=== PATIENT | male | born 1960 | race Caucasian/White ===

== ENCOUNTER 2017-11-14 19:11 | Inpatient (IN) ==
[2017-11-14] MEDS ORDERED: ENOXAPARIN 100 MG/ML SYRINGE SUBCUT STA (19:45)
[2017-11-14] MEDS ORDERED: ASPIRIN 325 MG TABLET PO STA (19:45)
[2017-11-14] MEDS ORDERED: NITROGLYCERIN 2% OINT 1 INCH/GM PACK TOP STA (19:45)
[2017-11-14] MEDS ORDERED: ONDANSETRON 4 MG/2 ML VIAL IV STA (19:45)
[2017-11-14 19:55] LABS: Basophils # 0.1 10*3/uL (0.0-0.2); Basophils % 0.7 % (0.0-0.8); Eosinophils # 0.3 10*3/uL (0.0-0.87); Eosinophils % 3.2 % (0.00-10.9); Hemoglobin 15.5 GM/DL (14.0-18.0); Immature Granulocytes % 0.2 %; Immature Granulocytes Absolute 0.02 #; Lymphocytes # 2.4 10*3/uL (1.4-4.0); Mean Corpuscular HGB Conc 34.4 GM/DL (32-36); Mean Corpuscular Hemoglobin 30 PG (27-34); Mean Corpuscular Volume 87.7 FL (87-102); Mean Platelet Volume 9.8 FL (9.6-12.0); Monocytes # 0.7 10*3/uL (0.11-0.8); Monocytes % 7.8 % (1.7-12.7); Neutrophils # 5.7 10*3/uL (1.4-7.4); Neutrophils % 62.1 % (38.7-73.9); Platelet Count 199 T/CUMM (130-400); Red Blood Count 5.13 MC/CUMM (3.8-5.5); Red Cell Distribution Width 12.1 % (9.3-17.3); White Blood Count 9.1 T/CUMM (4-12)
[2017-11-14 20:03] LABS: Albumin 3.7 G/DL (3.4-5.0); Bilirubin,Total 0.4 MG/DL (0.2-1.0); Calcium 8.8 MG/DL (8.5-10.1); PT Patient Result 10.3 SECS; Potassium 4.2 MMOL/L (3.5-5.1)
[2017-11-14] MEDS ORDERED: ENOXAPARIN 30 MG/0.3 ML SYRINGE ONE (20:19)
[2017-11-14] MEDS ORDERED: DEXTROSE 50% 25 GM/50 ML VIAL IV PRN (22:44)
[2017-11-14] MEDS ORDERED: ACETAMINOPHEN 325 MG TABLET PO PRN (22:44)
[2017-11-14] MEDS ORDERED: GLUCAGON 1 MG VIAL IM PRN (22:44)
[2017-11-14] MEDS ORDERED: ONDANSETRON 4 MG/2 ML VIAL IV PRN (22:44)
[2017-11-14] MEDS ORDERED: ALBUTEROL/IPRATROPIUM 3 ML NEB RESP TX PRN (22:44)
[2017-11-14] MEDS ORDERED: MORPHINE 4 MG/1 ML VIAL IV PRN (22:44)
[2017-11-14] MEDS: DOCUSATE SODIUM 100 MG CAPSULE PO SCH (23:47)
[2017-11-14] MEDS: SODIUM CHLORIDE 0.9% 1,000 ML IV SCH (23:48)
[2017-11-14] MEDS: ENOXAPARIN 150 MG/ML SYRINGE SUBCUT SCH (23:48)
[2017-11-15] MEDS: NITROGLYCERIN 2% OINT 1 INCH/GM PACK TOP SCH ×5 (00:56→23:55)
[2017-11-15] MEDS: INSULIN REGULAR 100 UNIT/ML SUBCUT SCH ×5 (00:56→23:54)
[2017-11-15 03:55] LABS: Basophils # 0.1 10*3/uL (0.0-0.2); Basophils % 0.8 % (0.0-0.8); Eosinophils # 0.3 10*3/uL (0.0-0.87); Eosinophils % 3.7 % (0.00-10.9); Hematocrit 41.5 VOL% (42.0-52.0); Hemoglobin 14.3 GM/DL (14.0-18.0); Immature Granulocytes % 0.3 %; Immature Granulocytes Absolute 0.02 #; Lymphocytes # 2.6 10*3/uL (1.4-4.0); Lymphocytes % 34.5 % (21.2-54.2); Mean Corpuscular HGB Conc 34.5 GM/DL (32-36); Mean Corpuscular Hemoglobin 30 PG (27-34); Mean Corpuscular Volume 86.8 FL (87-102); Mean Platelet Volume 10.2 FL (9.6-12.0); Monocytes # 0.6 10*3/uL (0.11-0.8); Monocytes % 8.3 % (1.7-12.7); Neutrophils % 52.4 % (38.7-73.9); Platelet Count 182 T/CUMM (130-400); Red Blood Count 4.78 MC/CUMM (3.8-5.5); Red Cell Distribution Width 12.1 % (9.3-17.3); White Blood Count 7.6 T/CUMM (4-12)
[2017-11-15 04:24] LABS: Albumin 3.2 G/DL (3.4-5.0); Bilirubin,Total 0.6 MG/DL (0.2-1.0); Calcium 8.3 MG/DL (8.5-10.1); Osmolality,Calculated 283.3 MOS/KG (273-304); Potassium 3.9 MMOL/L (3.5-5.1); Risk Ratio 3.03; Total Protein 6.4 G/DL (6.4-8.3)
[2017-11-15] MEDS ORDERED: ATORVASTATIN 20 MG TABLET PO SCH ×2 (09:00→21:00)
[2017-11-15] MEDS: LISINOPRIL 5 MG TABLET PO SCH (09:55)
[2017-11-15] MEDS: DOCUSATE SODIUM 100 MG CAPSULE PO SCH ×2 (09:55→21:31)
[2017-11-15] MEDS: ASPIRIN EC 325 MG TABLET PO SCH (09:55)
[2017-11-15] MEDS: ENOXAPARIN 150 MG/ML SYRINGE SUBCUT SCH (09:55)
[2017-11-15] MEDS: PANTOPRAZOLE 40 MG VIAL IV SCH (09:57)
[2017-11-15] MEDS ORDERED: diphenhydrAMINE CAP 25 MG CAPSULE PO ONE (14:14)
[2017-11-15] MEDS ORDERED: DIAZEPAM 5 MG TABLET PO ONE (14:14)
[2017-11-15] MEDS ORDERED: MAGNESIUM SULF RIDER 2 GM in PREMIX 1 EACH IV PRN (14:14)
[2017-11-15] MEDS ORDERED: POTASSIUM CHLORIDE RIDER 10 MEQ in PREMIX 1 EACH IV PRN (14:14)
[2017-11-15] MEDS ORDERED: NITROGLYCERIN DRIP 50 MG/250 ML BOTTLE IV ONE (17:12)
[2017-11-15] MEDS ORDERED: LIDOCAINE 1% 20 ML VIAL ONE (17:13)
[2017-11-15] MEDS ORDERED: VERAPAMIL 5 MG/2 ML VIAL ONE (17:13)
[2017-11-15] MEDS ORDERED: HYDROmorphone 2 MG/1 ML VIAL ONE (17:13)
[2017-11-15] MEDS ORDERED: MIDAZOLAM 2 MG/2 ML VIAL ONE (17:13)
[2017-11-15] MEDS ORDERED: HYDROmorphone 2 MG/1 ML VIAL IV PRN (17:48)
[2017-11-15] MEDS ORDERED: NITROGLYCERIN SL 0.4 MG TABLET SL PRN (17:48)
[2017-11-15] MEDS: CARVEDILOL 3.125 MG TABLET PO SCH (21:31)
[2017-11-15] MEDS: ROSUVASTATIN 20 MG TABLET PO SCH (21:31)
[2017-11-16] MEDS: SODIUM CHLORIDE 0.9% 1,000 ML IV SCH (03:19)
[2017-11-16] MEDS: INSULIN REGULAR 100 UNIT/ML SUBCUT SCH ×3 (05:05→17:48)
[2017-11-16 05:18] LABS: Basophils % 0.6 % (0.0-0.8); Eosinophils # 0.2 10*3/uL (0.0-0.87); Eosinophils % 3.7 % (0.00-10.9); Hematocrit 42.8 VOL% (42.0-52.0); Hemoglobin 14.5 GM/DL (14.0-18.0); Immature Granulocytes % 0.3 %; Immature Granulocytes Absolute 0.02 #; Lymphocytes # 1.6 10*3/uL (1.4-4.0); Lymphocytes % 25.1 % (21.2-54.2); Mean Corpuscular HGB Conc 33.9 GM/DL (32-36); Mean Corpuscular Hemoglobin 30 PG (27-34); Monocytes # 0.6 10*3/uL (0.11-0.8); Monocytes % 9.3 % (1.7-12.7); Neutrophils # 3.8 10*3/uL (1.4-7.4); Platelet Count 174 T/CUMM (130-400); Red Blood Count 4.92 MC/CUMM (3.8-5.5); Red Cell Distribution Width 12.3 % (9.3-17.3); White Blood Count 6.3 T/CUMM (4-12)
[2017-11-16 05:56] LABS: Calcium 8.4 MG/DL (8.5-10.1); Osmolality,Calculated 276.5 MOS/KG (273-304)
[2017-11-16 06:15] LABS: Troponin I Only 0.053 NG/ML (0.00-0.045)
[2017-11-16] MEDS: NITROGLYCERIN 2% OINT 1 INCH/GM PACK TOP SCH (06:22)
[2017-11-16] MEDS: CARVEDILOL 3.125 MG TABLET PO SCH ×2 (09:48→16:55)
[2017-11-16] MEDS: ISOSORBIDE MONONITRATE 30 MG TABLET PO SCH (09:49)
[2017-11-16] MEDS: LISINOPRIL 5 MG TABLET PO SCH (09:49)
[2017-11-16] MEDS: DOCUSATE SODIUM 100 MG CAPSULE PO SCH ×2 (09:49→20:07)
[2017-11-16] MEDS: ASPIRIN EC 325 MG TABLET PO SCH (09:49)
[2017-11-16] MEDS: ENOXAPARIN 40 MG/0.4 ML SYRINGE SUBCUT SCH (09:53)
[2017-11-16] MEDS: PANTOPRAZOLE 40 MG VIAL IV SCH (09:53)
[2017-11-16] MEDS: ROSUVASTATIN 20 MG TABLET PO SCH (20:07)
[2017-11-17] MEDS: INSULIN REGULAR 100 UNIT/ML SUBCUT SCH ×4 (00:16→17:39)
[2017-11-17 05:44] LABS: Calcium 8.7 MG/DL (8.5-10.1); Osmolality,Calculated 279.4 MOS/KG (273-304); Potassium 4.1 MMOL/L (3.5-5.1)
[2017-11-17] MEDS: ISOSORBIDE MONONITRATE 30 MG TABLET PO SCH (08:57)
[2017-11-17] MEDS: LISINOPRIL 5 MG TABLET PO SCH (08:57)
[2017-11-17] MEDS: CARVEDILOL 3.125 MG TABLET PO SCH ×2 (08:57→17:02)
[2017-11-17] MEDS: ASPIRIN EC 325 MG TABLET PO SCH (08:57)
[2017-11-17] MEDS: DOCUSATE SODIUM 100 MG CAPSULE PO SCH (08:57)
[2017-11-17] MEDS: ENOXAPARIN 40 MG/0.4 ML SYRINGE SUBCUT SCH (08:57)
[2017-11-17] MEDS ORDERED: ISOSORBIDE MONONITRATE 30 MG TABLET PO ONE (10:44)
[2017-11-17] MEDS: PANTOPRAZOLE 40 MG VIAL IV SCH (11:02)
[2017-11-17] MEDS ORDERED: PAPAVERINE 60 MG/2 ML VIAL ONE ×2 (12:19→16:19)
[2017-11-17] MEDS ORDERED: VANCOMYCIN 1,000 MG VIAL ONE ×2 (12:20→14:15)
[2017-11-17] MEDS ORDERED: CEFUROXIME INJ 1,500 MG in SODIUM CHLORIDE 0.9% 100 ML IV ONE (12:20)
[2017-11-17] MEDS ORDERED: GLUCAGON 1 MG VIAL IM PRN (12:20)
[2017-11-17] MEDS ORDERED: DEXTROSE 50% 25 GM/50 ML VIAL IV PRN ×3 (12:20→18:27)
[2017-11-17] MEDS ORDERED: SODIUM CHLORIDE 0.9% 1,000 ML IV PRN (12:28)
[2017-11-17] MEDS ORDERED: SODIUM CHLORIDE 0.9% 1,000 ML IV SCH (12:30)
[2017-11-17] MEDS ORDERED: ETOMIDATE 40 MG/20 ML VIAL IV ONE (12:31)
[2017-11-17] MEDS ORDERED: MINERAL OIL/PETROLATUM OPH OINT 3.5 GM TUBE ONE ×2 (12:31→18:30)
[2017-11-17] MEDS ORDERED: VECURONIUM 10 MG VIAL IV ONE (12:31)
[2017-11-17] MEDS ORDERED: AMINOCAPROIC ACID 5,000 MG/20 ML VIAL IV ONE (12:32)
[2017-11-17] MEDS ORDERED: CEFUROXIME 1,500 MG VIAL ONE (13:03)
[2017-11-17 13:58] LABS: ABG HCO3 23.6 MMOL/L (20-26); ABG Oxygen Saturation 99.3 % (95-100); ABG PCO2 44.4 MM HG (35-48); ABG PH 7.355 (7.35-7.45); ABG TCO2 21.6 MMOL/L (23-27); Glucose Heart Surgery 102 MG/DL (74-106); Hematocrit Heart Surgery 41.7 PERCENT (42-52); Hemoglobin Heart Surgery 13.6 G/DL (14.0-18.0); PCO2 Patient Temp Arterial 44.4 MMHG; PH Patient Temp Arterial 7.355; Patient Temperature 37 CELCIUS; Potassium Heart/CVR 3.7 MMOL/L (3.5-5.1); Sodium Heart/CVR 140 MMOL/L (135-145)
[2017-11-17] MEDS ORDERED: NITROPRUSSIDE 50 MG/2 ML VIAL ONE (14:13)
[2017-11-17] MEDS ORDERED: PHENYLEPHRINE DRIP 40 MG/250 ML PREMIX IV ONE (14:13)
[2017-11-17] MEDS ORDERED: CALCIUM CHLORIDE 1,000 MG/10 ML SYRINGE IV ONE (14:13)
[2017-11-17] MEDS ORDERED: POTASSIUM CHLORIDE RIDER 100 ML IV ONE (14:13)
[2017-11-17] MEDS ORDERED: SODIUM BICARBONATE 50 MEQ/50 ML SYRINGE IV ONE ×2 (14:15→17:27)
[2017-11-17] MEDS ORDERED: ALBUMIN 5% 12.5 GM/250 ML VIAL IV ONE ×3 (14:15→18:29)
[2017-11-17] MEDS ORDERED: CHLORHEXIDINE 4% SOLN 118 ML BOTTLE TOP SCH (15:00)
[2017-11-17 16:03] LABS: Hematocrit Heart Surgery 30.4 PERCENT (42-52); Hemoglobin Heart Surgery 9.8 G/DL (14.0-18.0); PCO2 Patient Temp Venous 41.8 MM HG; PH Patient Temp Venous 7.403; PO2 Patient Temp Venous 47.6 MM HG; Potassium Heart/CVR 4.6 MMOL/L (3.5-5.1); VBG Base Excess 1.2 MEQ/L (0-4); VBG HCO3 25.2 MEQ/L (24-28); VBG Oxygen Saturation 83.3 %; VBG PCO2 41.8 MMHG (41-51); VBG PH 7.403; VBG PO2 47.6 MMHG (17-40)
[2017-11-17 16:34] LABS: Hemoglobin Heart Surgery 10.7 G/DL (14.0-18.0); PCO2 Patient Temp Venous 37.9 MM HG; PH Patient Temp Venous 7.433; PO2 Patient Temp Venous 41.5 MM HG; Potassium Heart/CVR 4.1 MMOL/L (3.5-5.1); VBG Base Excess 1.2 MEQ/L (0-4); VBG HCO3 25.1 MEQ/L (24-28); VBG Oxygen Saturation 78.3 %; VBG PCO2 37.9 MMHG (41-51); VBG PH 7.433; VBG PO2 41.5 MMHG (17-40)
[2017-11-17] MEDS ORDERED: FUROSEMIDE 20 MG/2 ML VIAL ONE (17:27)
[2017-11-17] MEDS ORDERED: PROTAMINE SULFATE 250 MG/25 ML VIAL IV ONE (17:27)
[2017-11-17] MEDS ORDERED: MAGNESIUM SULFATE 10 GM/20 ML VIAL IV ONE (17:27)
[2017-11-17] MEDS ORDERED: ALBUMIN 25% 25 GM/100 ML VIAL IV ONE (17:27)
[2017-11-17] MEDS ORDERED: HEPARIN 10,000 UNIT/10 ML VIAL ONE (17:27)
[2017-11-17] MEDS ORDERED: DEXTROSE 5% KCL 20 MEQ 20 MEQ/1,000 ML BAG IV ONE (17:27)
[2017-11-17] MEDS ORDERED: methylPREDNISolone SOD SUC 1,000 MG/8 ML VIAL ONE (17:27)
[2017-11-17] MEDS ORDERED: MANNITOL 12.5 GM/50 ML VIAL IV ONE (17:27)
[2017-11-17] MEDS ORDERED: PROTAMINE SULFATE 50 MG/5 ML VIAL IV ONE ×3 (17:28→18:32)
[2017-11-17 17:40] LABS: ABG Base Excess 0.4 MMOL/L (-2.5-2.5); ABG HCO3 24.8 MMOL/L (20-26); ABG Oxygen Saturation 99.7 % (95-100); ABG PH 7.436 (7.35-7.45); ABG TCO2 21.7 MMOL/L (23-27); Glucose Heart Surgery 161 MG/DL (74-106); Hematocrit Heart Surgery 33.9 PERCENT (42-52); Ionized Calcium Arterial 1.16 MMOL/L (1.21-1.46); PH Patient Temp Arterial 7.436; Patient Temperature 37 CELCIUS; Potassium Heart/CVR 3.6 MMOL/L (3.5-5.1); Sodium Heart/CVR 136 MMOL/L (135-145)
[2017-11-17] MEDS: LACTATED RINGERS 1,000 ML IV PRN ×3 (18:15→19:13)
[2017-11-17] MEDS: ALBUMIN 5% 12.5 GM in PREMIX 1 EACH IV PRN ×2 (18:20→20:35)
[2017-11-17] MEDS ORDERED: MIDAZOLAM 2 MG/2 ML VIAL IV PRN (18:27)
[2017-11-17] MEDS ORDERED: PHENYLEPHRINE DRIP 40 MG/250 ML PREMIX IV PRN (18:27)
[2017-11-17] MEDS ORDERED: INSULIN REGULAR 100 UNIT/ML IV ONE (18:27)
[2017-11-17] MEDS ORDERED: ONDANSETRON 4 MG/2 ML VIAL IV PRN (18:27)
[2017-11-17] MEDS ORDERED: MIDAZOLAM 10 MG/2 ML VIAL IV PRN (18:27)
[2017-11-17] MEDS ORDERED: MORPHINE 4 MG/1 ML VIAL IV PRN (18:27)
[2017-11-17] MEDS ORDERED: LACTATED RINGERS 250 ML IV PRN (18:27)
[2017-11-17] MEDS ORDERED: INSULIN REGULAR 100 UNIT/ML IV PRN (18:27)
[2017-11-17] MEDS ORDERED: MAGNESIUM SULF RIDER 2 GM in PREMIX 1 EACH IV PRN (18:27)
[2017-11-17] MEDS ORDERED: VECURONIUM 10 MG VIAL IV PRN ×2 (18:27)
[2017-11-17] MEDS ORDERED: ACETAMINOPHEN 650 MG SUPP RECTAL PRN (18:27)
[2017-11-17] MEDS ORDERED: MAGNESIUM SULF RIDER 4 GM in PREMIX 1 EACH IV PRN (18:27)
[2017-11-17] MEDS ORDERED: MORPHINE 10 MG/1 ML VIAL IV PRN (18:27)
[2017-11-17] MEDS ORDERED: NITROPRUSSIDE 100 MG in DEXTROSE 5% 250 ML IV PRN (18:27)
[2017-11-17] MEDS ORDERED: CALCIUM CHLORIDE 1,000 MG/10 ML SYRINGE IV PRN (18:27)
[2017-11-17] MEDS ORDERED: CALCIUM CHLORIDE 1,000 MG/10 ML VIAL IV ONE (18:29)
[2017-11-17] MEDS ORDERED: SEVOFLURANE 1 UNIT/15 MINUTE INH ONE (18:29)
[2017-11-17] MEDS ORDERED: INSULIN REGULAR DRIP 100 ML IV SCH (18:30)
[2017-11-17] MEDS ORDERED: SODIUM CHLORIDE 0.9% 2,000 ML IV ONE (18:30)
[2017-11-17] MEDS ORDERED: ePHEDrine 50 MG/ML AMP ONE (18:30)
[2017-11-17] MEDS ORDERED: SUFentanil 250 MCG/5 ML AMP ONE (18:30)
[2017-11-17] MEDS ORDERED: LACTATED RINGERS 1,000 ML IV ONE (18:30)
[2017-11-17] MEDS ORDERED: SODIUM CHLORIDE 0.9% 250 ML IV ONE (18:30)
[2017-11-17] MEDS ORDERED: SODIUM CHLORIDE 0.45% 1,000 ML IV SCH ×2 (18:30)
[2017-11-17] MEDS ORDERED: SUCCINYLCHOLINE 200 MG/10 ML VIAL ONE (18:30)
[2017-11-17 18:31] LABS: ABG Base Excess 0.3 MMOL/L (-2.5-2.5); ABG HCO3 24.7 MMOL/L (20-26); ABG PCO2 37.6 MM HG (35-48); ABG PH 7.422 (7.35-7.45); ABG TCO2 21.8 MMOL/L (23-27); Glucose Heart Surgery 158 MG/DL (74-106); Hematocrit Heart Surgery 35.4 PERCENT (42-52); Hemoglobin Heart Surgery 11.5 G/DL (14.0-18.0); Potassium Heart/CVR 3.8 MMOL/L (3.5-5.1)
[2017-11-17 18:44] LABS: Basophils % 0.4 % (0.0-0.8); Eosinophils # 0.1 10*3/uL (0.0-0.87); Eosinophils % 1.1 % (0.00-10.9); Hematocrit 32.4 VOL% (42.0-52.0); Hemoglobin 11.2 GM/DL (14.0-18.0); Immature Granulocytes % 0.5 %; Immature Granulocytes Absolute 0.05 #; Lymphocytes # 1.5 10*3/uL (1.4-4.0); Lymphocytes % 16.4 % (21.2-54.2); Mean Corpuscular HGB Conc 34.6 GM/DL (32-36); Mean Corpuscular Hemoglobin 31 PG (27-34); Mean Corpuscular Volume 88.8 FL (87-102); Mean Platelet Volume 9.8 FL (9.6-12.0); Monocytes # 0.6 10*3/uL (0.11-0.8); Monocytes % 6.1 % (1.7-12.7); Neutrophils # 6.9 10*3/uL (1.4-7.4); Neutrophils % 75.5 % (38.7-73.9); Platelet Count 151 T/CUMM (130-400); Red Blood Count 3.65 MC/CUMM (3.8-5.5); White Blood Count 9.2 T/CUMM (4-12)
[2017-11-17] MEDS: POTASSIUM CHLORIDE RIDER 20 MEQ in PREMIX 1 EACH IV PRN (18:45)
[2017-11-17 18:55] LABS: INR 1.2; PT Patient Result 12.1 SECS; Partial Thromboplastin Time 30.4 SECS (0-40)
[2017-11-17] MEDS: KETOROLAC 30 MG/1 ML VIAL IV SCH (18:55)
[2017-11-17 18:57] LABS: Albumin 2.9 G/DL (3.4-5.0); Bilirubin,Total 0.8 MG/DL (0.2-1.0); Calcium 8.4 MG/DL (8.5-10.1); Osmolality,Calculated 283.3 MOS/KG (273-304); Potassium 3.8 MMOL/L (3.5-5.1); Total Protein 5.2 G/DL (6.4-8.3)
[2017-11-17] MEDS: POTASSIUM CHLORIDE RIDER 10 MEQ in PREMIX 1 EACH IV PRN (19:15)
[2017-11-17 19:18] LABS: CKMB % 6.2 %
[2017-11-17 19:20] LABS: Troponin I Only 1.64 NG/ML (0.00-0.045)
[2017-11-17] MEDS ORDERED: CHLORHEXIDINE 0.12% ORAL RINSE 60 ML BOTTLE SWISH/SPIT SCH (21:00)
[2017-11-17] MEDS: CHLORHEXIDINE 0.12% ORAL RINSE 60 ML BOTTLE SWISH/SPIT SCH (21:31)
[2017-11-17 22:59] LABS: ABG Base Excess -0.8 MMOL/L (-2.5-2.5); ABG HCO3 23.7 MMOL/L (20-26); ABG Oxygen Saturation 98.3 % (95-100); ABG PCO2 42.7 MM HG (35-48); ABG PH 7.368 (7.35-7.45); Glucose Heart Surgery 141 MG/DL (74-106); Hematocrit Heart Surgery 35.2 PERCENT (42-52); Hemoglobin Heart Surgery 11.4 G/DL (14.0-18.0); Potassium Heart/CVR 3.5 MMOL/L (3.5-5.1)
[2017-11-17 23:49] LABS: ABG HCO3 22.7 MMOL/L (20-26); ABG Oxygen Saturation 96.4 % (95-100); ABG PCO2 45.8 MM HG (35-48); ABG PO2 90.1 MM HG (80-95); ABG TCO2 21.6 MMOL/L (23-27)
[2017-11-18] MEDS: POTASSIUM CHLORIDE RIDER 10 MEQ in PREMIX 1 EACH IV PRN (00:34)
[2017-11-18] MEDS: KETOROLAC 30 MG/1 ML VIAL IV SCH ×5 (01:10→18:44)
[2017-11-18 01:12] LABS: ABG Base Excess -2.9 MMOL/L (-2.5-2.5); ABG HCO3 21.9 MMOL/L (20-26); ABG Oxygen Saturation 95.3 % (95-100); ABG PCO2 42.1 MM HG (35-48); ABG PH 7.341 (7.35-7.45); ABG PO2 80.6 MM HG (80-95); ABG TCO2 20.4 MMOL/L (23-27); Glucose Heart Surgery 161 MG/DL (74-106); Hematocrit Heart Surgery 35.9 PERCENT (42-52); Hemoglobin Heart Surgery 11.7 G/DL (14.0-18.0); Potassium Heart/CVR 4.2 MMOL/L (3.5-5.1)
[2017-11-18] MEDS ORDERED: CEFUROXIME INJ 1,500 MG in SYRINGE 1 EACH IV SCH (02:00)
[2017-11-18] MEDS ORDERED: FUROSEMIDE 40 MG/4 ML VIAL IV ONE (02:30)
[2017-11-18 02:43] LABS: CKMB % 4.3 %
[2017-11-18 03:05] LABS: Troponin I Only 2.03 NG/ML (0.00-0.045)
[2017-11-18] MEDS: ALBUMIN 5% 12.5 GM in PREMIX 1 EACH IV PRN ×2 (03:46→04:20)
[2017-11-18 04:11] LABS: ABG Base Excess -0.9 MMOL/L (-2.5-2.5); ABG HCO3 24.2 MMOL/L (20-26); ABG Oxygen Saturation 94.5 % (95-100); ABG PCO2 41.8 MM HG (35-48); ABG PO2 80.2 MM HG (80-95); ABG TCO2 25.5 MMOL/L (23-27); Glucose Heart Surgery 123 MG/DL (74-106); Hemoglobin Heart Surgery 12.3 G/DL (14.0-18.0); Potassium Heart/CVR 4.1 MMOL/L (3.5-5.1)
[2017-11-18 04:17] LABS: Basophils % 0.1 % (0.0-0.8); Hematocrit 33.5 VOL% (42.0-52.0); Hemoglobin 11.4 GM/DL (14.0-18.0); Immature Granulocytes % 0.4 %; Immature Granulocytes Absolute 0.05 #; Lymphocytes # 0.6 10*3/uL (1.4-4.0); Mean Corpuscular Hemoglobin 30 PG (27-34); Mean Corpuscular Volume 88.6 FL (87-102); Mean Platelet Volume 9.8 FL (9.6-12.0); Monocytes # 0.5 10*3/uL (0.11-0.8); Monocytes % 3.4 % (1.7-12.7); Neutrophils # 13.2 10*3/uL (1.4-7.4); Neutrophils % 92.1 % (38.7-73.9); Platelet Count 194 T/CUMM (130-400); Red Blood Count 3.78 MC/CUMM (3.8-5.5); Red Cell Distribution Width 12.2 % (9.3-17.3); White Blood Count 14.3 T/CUMM (4-12)
[2017-11-18 04:34] LABS: Albumin 3.2 G/DL (3.4-5.0); Bilirubin,Direct 0.18 MG/DL (0.0-0.20); Bilirubin,Total 0.6 MG/DL (0.2-1.0); Calcium 8.5 MG/DL (8.5-10.1); Osmolality,Calculated 281.4 MOS/KG (273-304); Potassium 4.1 MMOL/L (3.5-5.1); Total Protein 6.1 G/DL (6.4-8.3)
[2017-11-18 04:40] LABS: Band Neutrophils 8 % (0-10); Lymphocytes 6 % (20-55); Segmented Neutrophils 83 % (50-85)
[2017-11-18 04:41] LABS: Platelet Estimate Normal; Total Cells Counted 100
[2017-11-18] MEDS: POTASSIUM CHLORIDE RIDER 20 MEQ in PREMIX 1 EACH IV PRN ×2 (04:51)
[2017-11-18] MEDS ORDERED: GLUCAGON 1 MG VIAL IM PRN ×3 (07:07→08:39)
[2017-11-18] MEDS: INSULIN REGULAR 100 UNIT/ML SUBCUT SCH ×4 (08:04→21:06)
[2017-11-18] MEDS: LISINOPRIL 5 MG TABLET PO SCH (08:08)
[2017-11-18] MEDS: CARVEDILOL 3.125 MG TABLET PO SCH ×2 (08:09→17:04)
[2017-11-18] MEDS: CHLORHEXIDINE 0.12% ORAL RINSE 60 ML BOTTLE SWISH/SPIT SCH ×3 (08:09→21:06)
[2017-11-18] MEDS ORDERED: oxyCODONE/ACETAMINOPHEN 5-325 MG TABLET PO PRN (08:39)
[2017-11-18] MEDS ORDERED: MAGNESIUM SULF RIDER 4 GM in PREMIX 1 EACH IV PRN (08:39)
[2017-11-18] MEDS ORDERED: SODIUM CHLOR 0.45% KCL 20 MEQ 20 MEQ/1,000 ML BAG IV SCH (08:39)
[2017-11-18] MEDS ORDERED: MORPHINE 4 MG/1 ML VIAL IV PRN (08:39)
[2017-11-18] MEDS ORDERED: ZALEPLON 5 MG CAPSULE PO PRN (08:39)
[2017-11-18] MEDS ORDERED: ONDANSETRON 4 MG/2 ML VIAL IV PRN (08:39)
[2017-11-18] MEDS ORDERED: MAGNESIUM HYDROXIDE SUSP 30 ML UDCUP PO PRN (08:39)
[2017-11-18] MEDS ORDERED: MAGNESIUM SULF RIDER 2 GM in PREMIX 1 EACH IV PRN (08:39)
[2017-11-18] MEDS ORDERED: DEXTROSE 50% 25 GM/50 ML VIAL IV PRN ×2 (08:39)
[2017-11-18] MEDS ORDERED: ALUMINUM/MAGNES/SIMETH MAX STR 30 ML UDCUP PO PRN (08:39)
[2017-11-18] MEDS ORDERED: POTASSIUM CHLORIDE 20 MEQ TABLET PO PRN (08:39)
[2017-11-18] MEDS ORDERED: ISOSORBIDE MONONITRATE 60 MG TABLET PO SCH (09:00)
[2017-11-18] MEDS: metFORMIN 500 MG TABLET PO SCH ×2 (09:28→21:06)
[2017-11-18] MEDS: ASPIRIN EC 81 MG TABLET PO SCH (09:28)
[2017-11-18] MEDS: PANTOPRAZOLE 40 MG TABLET PO SCH (09:28)
[2017-11-18] MEDS: FERROUS SULFATE 325 MG TABLET PO SCH (09:28)
[2017-11-18] MEDS: DOCUSATE SODIUM 100 MG CAPSULE PO SCH (09:29)
[2017-11-18] MEDS: ROSUVASTATIN 20 MG TABLET PO SCH (21:06)
[2017-11-18] MEDS: ENOXAPARIN 40 MG/0.4 ML SYRINGE SUBCUT SCH (22:55)
[2017-11-19] MEDS ORDERED: KETOROLAC 30 MG/1 ML VIAL IV SCH
[2017-11-19] MEDS: INSULIN REGULAR 100 UNIT/ML SUBCUT SCH ×7 (00:25→21:29)
[2017-11-19 04:47] LABS: Basophils % 0.1 % (0.0-0.8); Hematocrit 30.4 VOL% (42.0-52.0); Hemoglobin 10.2 GM/DL (14.0-18.0); Immature Granulocytes % 0.7 %; Immature Granulocytes Absolute 0.12 #; Lymphocytes # 1.5 10*3/uL (1.4-4.0); Lymphocytes % 8.9 % (21.2-54.2); Mean Corpuscular HGB Conc 33.6 GM/DL (32-36); Mean Corpuscular Hemoglobin 30 PG (27-34); Mean Corpuscular Volume 89.7 FL (87-102); Mean Platelet Volume 10.4 FL (9.6-12.0); Monocytes # 1.7 10*3/uL (0.11-0.8); Neutrophils # 13.4 10*3/uL (1.4-7.4); Neutrophils % 80.3 % (38.7-73.9); Platelet Count 170 T/CUMM (130-400); Red Blood Count 3.39 MC/CUMM (3.8-5.5); Red Cell Distribution Width 12.8 % (9.3-17.3); White Blood Count 16.7 T/CUMM (4-12)
[2017-11-19 05:19] LABS: Albumin 3.3 G/DL (3.4-5.0); Bilirubin,Direct 0.16 MG/DL (0.0-0.20); Bilirubin,Indirect 0.6 MG/DL (0.0-1.0); Bilirubin,Total 0.8 MG/DL (0.2-1.0); CKMB % 1.4 %; Calcium 8.5 MG/DL (8.5-10.1); Osmolality,Calculated 283.1 MOS/KG (273-304); Potassium 4.3 MMOL/L (3.5-5.1); Total Protein 6.3 G/DL (6.4-8.3)
[2017-11-19 05:21] LABS: Troponin I Only 3.31 NG/ML (0.00-0.045)
[2017-11-19] MEDS ORDERED: FUROSEMIDE 40 MG/4 ML VIAL IV ONE (06:00)
[2017-11-19] MEDS: ACETAMINOPHEN 325 MG TABLET PO PRN (06:05)
[2017-11-19] MEDS: LISINOPRIL 5 MG TABLET PO SCH (08:52)
[2017-11-19] MEDS: CARVEDILOL 3.125 MG TABLET PO SCH ×2 (08:53→16:16)
[2017-11-19] MEDS: DOCUSATE SODIUM 100 MG CAPSULE PO SCH (08:54)
[2017-11-19] MEDS: FERROUS SULFATE 325 MG TABLET PO SCH (08:54)
[2017-11-19] MEDS: ASPIRIN EC 81 MG TABLET PO SCH (08:54)
[2017-11-19] MEDS: metFORMIN 500 MG TABLET PO SCH ×2 (08:54→21:00)
[2017-11-19] MEDS: CHLORHEXIDINE 0.12% ORAL RINSE 60 ML BOTTLE SWISH/SPIT SCH ×2 (08:55→21:29)
[2017-11-19] MEDS: PANTOPRAZOLE 40 MG TABLET PO SCH (08:56)
[2017-11-19] MEDS: PHENAZOPYRIDINE 95 MG TABLET PO SCH ×2 (12:00→17:13)
[2017-11-19] MEDS: FUROSEMIDE 40 MG/4 ML VIAL IV SCH (17:12)
[2017-11-19] MEDS: NAPROXEN 250 MG TABLET PO SCH (17:13)
[2017-11-19] MEDS: ROSUVASTATIN 20 MG TABLET PO SCH (20:59)
[2017-11-19] MEDS: ENOXAPARIN 40 MG/0.4 ML SYRINGE SUBCUT SCH (20:59)
[2017-11-20] MEDS: INSULIN REGULAR 100 UNIT/ML SUBCUT SCH ×6 (01:21→21:23)
[2017-11-20] MEDS ORDERED: ENOXAPARIN 40 MG/0.4 ML SYRINGE SUBCUT ONE (01:30)
[2017-11-20] MEDS: NAPROXEN 250 MG TABLET PO SCH (01:38)
[2017-11-20 05:27] LABS: Basophils % 0.2 % (0.0-0.8); Eosinophils # 0.1 10*3/uL (0.0-0.87); Eosinophils % 0.4 % (0.00-10.9); Hematocrit 29.1 VOL% (42.0-52.0); Hemoglobin 9.9 GM/DL (14.0-18.0); Immature Granulocytes % 0.6 %; Immature Granulocytes Absolute 0.07 #; Lymphocytes # 1.8 10*3/uL (1.4-4.0); Lymphocytes % 14.4 % (21.2-54.2); Mean Corpuscular Hemoglobin 31 PG (27-34); Mean Corpuscular Volume 90.7 FL (87-102); Mean Platelet Volume 10.1 FL (9.6-12.0); Monocytes # 1.3 10*3/uL (0.11-0.8); Monocytes % 10.5 % (1.7-12.7); Neutrophils % 73.9 % (38.7-73.9); Platelet Count 150 T/CUMM (130-400); Red Blood Count 3.21 MC/CUMM (3.8-5.5); Red Cell Distribution Width 12.6 % (9.3-17.3); White Blood Count 12.2 T/CUMM (4-12)
[2017-11-20 05:55] LABS: Alanine Aminotransferase 36 U/L (16-61); Alkaline Phosphatase 55 U/L (45-117); Aspartate Amino Transferase 29 U/L (0-37); Bilirubin,Indirect 0.6 MG/DL (0.0-1.0); Bilirubin,Total 0.9 MG/DL (0.2-1.0); Calcium 8.6 MG/DL (8.5-10.1); Osmolality,Calculated 282.8 MOS/KG (273-304); Total Protein 6.3 G/DL (6.4-8.3)
[2017-11-20] MEDS: methylPREDNISolone SOD SUC 40 MG/1 ML VIAL IV SCH ×2 (09:00→17:09)
[2017-11-20] MEDS: FUROSEMIDE 40 MG/4 ML VIAL IV SCH ×2 (09:01→17:09)
[2017-11-20] MEDS: PHENAZOPYRIDINE 95 MG TABLET PO SCH ×3 (09:02→17:10)
[2017-11-20] MEDS: metFORMIN 500 MG TABLET PO SCH ×2 (09:02→21:23)
[2017-11-20] MEDS: CHLORHEXIDINE 0.12% ORAL RINSE 60 ML BOTTLE SWISH/SPIT SCH ×2 (09:02→21:26)
[2017-11-20] MEDS: DOCUSATE SODIUM 100 MG CAPSULE PO SCH (09:02)
[2017-11-20] MEDS: ASPIRIN EC 81 MG TABLET PO SCH (09:02)
[2017-11-20] MEDS: FERROUS SULFATE 325 MG TABLET PO SCH (09:02)
[2017-11-20] MEDS: PANTOPRAZOLE 40 MG TABLET PO SCH (09:02)
[2017-11-20] MEDS: ENOXAPARIN 80 MG/0.8 ML SYRINGE SUBCUT SCH (12:36)
[2017-11-20 13:30] LABS: Apearance,Urine CLEAR (Clear); Bacteria,Urine Occasional /HPF (Few); Bilirubin,Urine Negative (Negative); Blood, Urine Small mg/dL (Negative); Glucose,Urine (UA) 150 mg/dL (Negative); Ketones,Urine Negative (Negative); Mucus,Urine Occasional /LPF (Occasional); Nitrite,Urine Positive (Negative); Protein,Urine Negative; RBC,Urine 1 /HPF (0-4); Squamous Epithelial Cell,Urine Occasional /HPF (0-10); Urine Color Amber (Yellow); Urine Specific Gravity 1.009 (1.001-1.035); Urine Urobilinogen < 2.0 EU/DL (0.2-1.0); WBC,Urine <1 /HPF (0-6)
[2017-11-20] MEDS: ACETAMINOPHEN 325 MG TABLET PO PRN ×2 (15:17→22:12)
[2017-11-20] MEDS: ROSUVASTATIN 20 MG TABLET PO SCH (21:22)
[2017-11-21] MEDS: INSULIN REGULAR 100 UNIT/ML SUBCUT SCH ×6 (00:38→21:30)
[2017-11-21] MEDS: methylPREDNISolone SOD SUC 40 MG/1 ML VIAL IV SCH ×2 (00:38→09:25)
[2017-11-21] MEDS: ENOXAPARIN 80 MG/0.8 ML SYRINGE SUBCUT SCH ×2 (00:41→12:57)
[2017-11-21] MEDS ORDERED: MAGNESIUM HYDROXIDE SUSP 30 ML UDCUP PO ONE (09:01)
[2017-11-21] MEDS: PHENAZOPYRIDINE 95 MG TABLET PO SCH ×3 (09:07→17:33)
[2017-11-21] MEDS: FUROSEMIDE 40 MG/4 ML VIAL IV SCH (09:08)
[2017-11-21] MEDS: DOCUSATE SODIUM 100 MG CAPSULE PO SCH (09:08)
[2017-11-21] MEDS: FERROUS SULFATE 325 MG TABLET PO SCH (09:08)
[2017-11-21] MEDS: metFORMIN 500 MG TABLET PO SCH ×2 (09:08→21:30)
[2017-11-21] MEDS: ASPIRIN EC 81 MG TABLET PO SCH (09:08)
[2017-11-21] MEDS: CHLORHEXIDINE 0.12% ORAL RINSE 60 ML BOTTLE SWISH/SPIT SCH ×2 (09:14→21:35)
[2017-11-21] MEDS: PANTOPRAZOLE 40 MG TABLET PO SCH (09:14)
[2017-11-21] MEDS ORDERED: methylPREDNISolone SOD SUC 40 MG/1 ML VIAL IV SCH (09:30)
[2017-11-21] MEDS: ROSUVASTATIN 20 MG TABLET PO SCH (21:30)
[2017-11-22] MEDS: INSULIN REGULAR 100 UNIT/ML SUBCUT SCH ×5 (00:13→21:35)
[2017-11-22 04:59] LABS: Basophils % 0.2 % (0.0-0.8); Eosinophils # 0.1 10*3/uL (0.0-0.87); Eosinophils % 0.6 % (0.00-10.9); Hematocrit 29.5 VOL% (42.0-52.0); Hemoglobin 10.3 GM/DL (14.0-18.0); Immature Granulocytes % 0.5 %; Immature Granulocytes Absolute 0.06 #; Lymphocytes # 3.3 10*3/uL (1.4-4.0); Lymphocytes % 25.5 % (21.2-54.2); Mean Corpuscular HGB Conc 34.9 GM/DL (32-36); Mean Corpuscular Hemoglobin 31 PG (27-34); Mean Corpuscular Volume 88.1 FL (87-102); Mean Platelet Volume 9.9 FL (9.6-12.0); Monocytes # 1.2 10*3/uL (0.11-0.8); Monocytes % 9.1 % (1.7-12.7); Neutrophils # 8.4 10*3/uL (1.4-7.4); Neutrophils % 64.1 % (38.7-73.9); Platelet Count 258 T/CUMM (130-400); Red Blood Count 3.35 MC/CUMM (3.8-5.5); Red Cell Distribution Width 12.3 % (9.3-17.3); White Blood Count 13.1 T/CUMM (4-12)
[2017-11-22 05:36] LABS: Alanine Aminotransferase 37 U/L (16-61); Albumin 2.9 G/DL (3.4-5.0); Alkaline Phosphatase 69 U/L (45-117); Aspartate Amino Transferase 18 U/L (0-37); Bilirubin,Indirect 0.6 MG/DL (0.0-1.0); Blood Urea Nitrogen 27 MG/DL (7-18); Calcium 9.1 MG/DL (8.5-10.1); Glucose 158 MG/DL (74-106); Osmolality,Calculated 282.7 MOS/KG (273-304); Potassium 3.5 MMOL/L (3.5-5.1); Sodium 138 MMOL/L (136-145); Total Protein 6.6 G/DL (6.4-8.3)
[2017-11-22] MEDS: ACETAMINOPHEN 325 MG TABLET PO PRN (06:21)
[2017-11-22] MEDS: ENOXAPARIN 40 MG/0.4 ML SYRINGE SUBCUT SCH (08:40)
[2017-11-22] MEDS: PANTOPRAZOLE 40 MG TABLET PO SCH (08:41)
[2017-11-22] MEDS: FERROUS SULFATE 325 MG TABLET PO SCH (08:41)
[2017-11-22] MEDS: DOCUSATE SODIUM 100 MG CAPSULE PO SCH (08:41)
[2017-11-22] MEDS: PHENAZOPYRIDINE 95 MG TABLET PO SCH ×3 (08:41→16:38)
[2017-11-22] MEDS: metFORMIN 500 MG TABLET PO SCH ×2 (08:41→21:32)
[2017-11-22] MEDS: ASPIRIN EC 81 MG TABLET PO SCH (08:41)
[2017-11-22] MEDS: FUROSEMIDE 40 MG TABLET PO SCH (08:41)
[2017-11-22] MEDS: CHLORHEXIDINE 0.12% ORAL RINSE 60 ML BOTTLE SWISH/SPIT SCH ×2 (08:41→21:33)
[2017-11-22] MEDS: LISINOPRIL 10 MG TABLET PO SCH (12:32)
[2017-11-22] MEDS: ROSUVASTATIN 20 MG TABLET PO SCH (21:32)
[2017-11-23 04:53] LABS: Basophils % 0.4 % (0.0-0.8); Eosinophils # 0.2 10*3/uL (0.0-0.87); Eosinophils % 1.9 % (0.00-10.9); Hematocrit 29.3 VOL% (42.0-52.0); Hemoglobin 9.7 GM/DL (14.0-18.0); Immature Granulocytes % 0.6 %; Immature Granulocytes Absolute 0.06 #; Lymphocytes # 2.9 10*3/uL (1.4-4.0); Lymphocytes % 26.9 % (21.2-54.2); Mean Corpuscular HGB Conc 33.1 GM/DL (32-36); Mean Corpuscular Hemoglobin 30 PG (27-34); Mean Corpuscular Volume 89.1 FL (87-102); Mean Platelet Volume 9.7 FL (9.6-12.0); Monocytes % 9.4 % (1.7-12.7); Neutrophils # 6.6 10*3/uL (1.4-7.4); Neutrophils % 60.8 % (38.7-73.9); Platelet Count 253 T/CUMM (130-400); Red Blood Count 3.29 MC/CUMM (3.8-5.5); Red Cell Distribution Width 12.2 % (9.3-17.3); White Blood Count 10.8 T/CUMM (4-12)
[2017-11-23 05:04] LABS: Calcium 8.4 MG/DL (8.5-10.1); Osmolality,Calculated 283.5 MOS/KG (273-304); Potassium 3.8 MMOL/L (3.5-5.1)
[2017-11-23 05:10] LABS: Alanine Aminotransferase 30 U/L (16-61); Albumin 2.6 G/DL (3.4-5.0); Alkaline Phosphatase 59 U/L (45-117); Aspartate Amino Transferase 14 U/L (0-37); Bilirubin,Indirect 0.4 MG/DL (0.0-1.0); Blood Urea Nitrogen 23 MG/DL (7-18); Calcium 8.2 MG/DL (8.5-10.1); Glucose 158 MG/DL (74-106); Osmolality,Calculated 283.5 MOS/KG (273-304); Potassium 3.8 MMOL/L (3.5-5.1); Sodium 139 MMOL/L (136-145); Total Protein 6.1 G/DL (6.4-8.3)
[2017-11-23] MEDS: PANTOPRAZOLE 40 MG TABLET PO SCH (08:46)
[2017-11-23] MEDS: ENOXAPARIN 40 MG/0.4 ML SYRINGE SUBCUT SCH (08:46)
[2017-11-23] MEDS: DOCUSATE SODIUM 100 MG CAPSULE PO SCH (08:46)
[2017-11-23] MEDS: metFORMIN 500 MG TABLET PO SCH ×2 (08:46→21:46)
[2017-11-23] MEDS: FUROSEMIDE 40 MG TABLET PO SCH (08:47)
[2017-11-23] MEDS: LISINOPRIL 10 MG TABLET PO SCH (08:47)
[2017-11-23] MEDS: FERROUS SULFATE 325 MG TABLET PO SCH (08:47)
[2017-11-23] MEDS: ASPIRIN EC 81 MG TABLET PO SCH (08:47)
[2017-11-23] MEDS: CHLORHEXIDINE 0.12% ORAL RINSE 60 ML BOTTLE SWISH/SPIT SCH ×2 (08:48→21:47)
[2017-11-23] MEDS: INSULIN REGULAR 100 UNIT/ML SUBCUT SCH ×4 (08:50→21:46)
[2017-11-23] MEDS: METOPROLOL SUCCINATE XL 25 MG TABLET PO SCH (13:05)
[2017-11-23] MEDS: ROSUVASTATIN 20 MG TABLET PO SCH (21:46)
[2017-11-24 08:02] VITALS: BP 115/55
[2017-11-24] MEDS: INSULIN REGULAR 100 UNIT/ML SUBCUT SCH (08:30)
[2017-11-24] MEDS: FUROSEMIDE 40 MG TABLET PO SCH (08:32)
[2017-11-24] MEDS: ENOXAPARIN 40 MG/0.4 ML SYRINGE SUBCUT SCH (08:32)
[2017-11-24] MEDS: PANTOPRAZOLE 40 MG TABLET PO SCH (08:32)
[2017-11-24] MEDS: ASPIRIN EC 81 MG TABLET PO SCH (08:33)
[2017-11-24] MEDS: METOPROLOL SUCCINATE XL 25 MG TABLET PO SCH (08:33)
[2017-11-24] MEDS: LISINOPRIL 10 MG TABLET PO SCH (08:33)
[2017-11-24] MEDS: FERROUS SULFATE 325 MG TABLET PO SCH (08:33)
[2017-11-24] MEDS: metFORMIN 500 MG TABLET PO SCH (08:33)
[2017-11-24] MEDS: DOCUSATE SODIUM 100 MG CAPSULE PO SCH (08:33)
[2017-11-24] MEDS: CHLORHEXIDINE 0.12% ORAL RINSE 60 ML BOTTLE SWISH/SPIT SCH (08:34)
[2017-11-24] MEDS ORDERED: MAGNESIUM CHLORIDE 64 MG TABLET PO ONE (08:36)
== END 2017-11-24 12:46 | disposition home health service (06) | DRG 234 ==
LOC: N.ED 19:11 → N.EDINP 20:29 → N.TELEN 21:07 → N.CVR 11-17 15:10 → N.TELES 11-18 08:28
PROVIDERS: ADMIT Family Medicine; ATTEND Family Medicine
PROC: CLCCHCL (ICD-10-PCS; 2017-11-15 17:15)